=== PATIENT | female | born 1995 | race Caucasian/White ===

== ENCOUNTER 2017-10-02 14:41 | Emergency (ER) | payer MEDICAID ==
[~2017-10-02] VITALS: Ht 165.1 cm; Wt 69.8 kg
[2017-10-02 14:46] VITALS: Ht 165.1 cm; Wt 69.8 kg
[2017-10-02 15:26] VITALS: BP 125/79
[2017-10-02 15:35] LABS: UA SPECIFIC GRAVITY 1.025 (1.005-1.035); microscopic required? YES; urine erythrocyte NEGATIVE (NEGATIVE)
== END 2017-10-02 15:26 | disposition home or self-care (01) ==
LOC: ED 14:41
PROVIDERS: Emergency Medicine
DX: N39.0 Urinary tract infection, site not specified (principal); Z34.92 Encounter for supervision of normal pregnancy, unspecified, second trimester